=== PATIENT | male | born 1955 | race Caucasian/White ===

== ENCOUNTER 2018-05-31 14:04 | Emergency (ER) | payer MEDICARE, MEDICAID ==
[~2018-05-31] VITALS: Ht 182.9 cm; Wt 81.8 kg
[2018-05-31 14:07] VITALS: Ht 182.9 cm; Wt 81.8 kg
[2018-05-31] MEDS ORDERED: MIRALAX17 GM PO (14:09)
[2018-05-31] MEDS ORDERED: OMNICEF300 MG PO (14:09)
[2018-05-31 15:12] LABS: BASOPHILS 0.2 % (0-2); EOSINOPHILS 0.5 % (0-7); HEMATOCRIT 45.3 % (42.0-54.0); HEMOGLOBIN 14.9 g/dL (13.5-17.5); IMMATURE GRANULOCYTES 0.5 % (0-5); LYMPHOCYTES 16.8 % (15-50); MCHC 32.9 g/dL (31.0-37.0); MCV 94.4 fL (80.0-100.0); MONOCYTES 5.4 % (2-11); NEUTROPHILS 76.6 % (40-80); RDW 14.6 % (11.5-14.5)
[2018-05-31 15:13] LABS: PLATELET COUNT 160 10x3/uL (130-400)
[2018-05-31 17:25] LABS: ALBUMIN 3.6 g/dL (3.4-5.0); ALKALINE PHOSPHATASE 99 U/L (46-116); ALT (SGPT) 26 U/L (10-68); BILIRUBIN - TOTAL 0.46 mg/dL (0.2-1.3); CALC OSMOLALITY 280 mosm/kg (275-300); CALCIUM 8.6 mg/dL (8.5-10.1); CARBON DIOXIDE 26.5 mmol/L (21.0-32.0); CHLORIDE - SERUM 104 mmol/L (98-107); CREATININE - SERUM 0.7 mg/dL (0.6-1.3); GLUCOSE 91 mg/dL (74-106); POTASSIUM - SERUM 4.4 mmol/L (3.5-5.1); PROTEIN - SERUM 7.3 g/dL (6.4-8.2); SODIUM 141 mmol/L (136-145); UREA NITROGEN 13 mg/dL (7-18); eGFR NON AFRICAN AMERICAN > 90 mL/min (90-120)
[2018-05-31 17:47] LABS: APPEARANCE CLEAR (CLEAR); BILIRUBIN 1+ (NEGATIVE); COLOR DK YELLOW (YELLOW); GLUCOSE NEGATIVE (NEGATIVE); KETONE LARGE mg/dL (NEGATIVE); NITRITE NEGATIVE (NEGATIVE); PROTEIN NEGATIVE (NEGATIVE)
[2018-05-31 17:49] LABS: BACTERIA FEW /hpf (NONE SEEN); MUCUS <1+ /lpf (NONE SEEN); RED CELLS - URINE 0-5 /hpf (0-5)
[2018-05-31] MEDS ORDERED: CIPRO250 MG PO (18:25)
[2018-05-31 18:43] VITALS: BP 110/64
== END 2018-05-31 18:44 | disposition other institution (70) ==
LOC: D.ER 14:04
PROVIDERS: Emergency Medicine
DX: R41.82 Altered mental status, unspecified (principal); N39.0 Urinary tract infection, site not specified; R53.83 Other fatigue; F17.200 Nicotine dependence, unspecified, uncomplicated

== ENCOUNTER → 2019-02-11 11:07 | Outpatient (CLI) | payer MEDICARE ==
[2018-05-31 14:07] VITALS: BMI 24.4
[~2019-02-11 11:07] MED LIST: CIPRO250 MG PO; MIRALAX17 GM PO; OMNICEF300 MG PO
== END | disposition home or self-care (01) ==
LOC: D.CT 11:07
PROVIDERS: ATTEND Legal Medicine
DX: R93.89 Abnormal findings on diagnostic imaging of other specified body structures (principal)